=== PATIENT | male | born 1960 | race Caucasian/White ===

== ENCOUNTER 2019-01-06 08:49 | Emergency (ER) | payer BC, SELFPAY ==
[2019-01-06 08:52] VITALS: BP 121/81; PULSE 75; RESP 12; TEMP 36.9; O2SAT 98
--- NOTE | 2019-01-06 09:18 | ED.GENADUL_ITS ---
Discharge Plan Disposition Patient Disposition: HOME Condition: Stable Discharge Details Chief Complaint: Allergic Clinical Impression: Allergic reaction Primary Care Provider: Coco,Local ED Provider: Maryse Maynard Home Meds and New Rx's Prescriptions: New prednisone 20 mg tablet See Rx Instructions .ROUTE .COMPLEX Qty: 12 RF: 0 Continued lisinopril [Prinivil] 20 MG tablet 20 mg PO DAILY RF: 0 pravastatin 20 MG tablet 20 mg PO QPM RF: 0 Xarelto 20 mg Tablet 20 mg PO QPM RF: 0 diphenhydramine HCl 25 mg Tablet 25 mg PO Q4H PRNRF: 0 Discharge Instructions Instructions: General Allergic Reaction (ED) Additional Instructions: Stop using the new fabric softener that you have at home as this may be the cause of your rash. Take Benadryl as needed and directed for itching. Take the steroids until finished. Follow-up with your primary care doctor next week for reevaluation. Return immediately to the emergency department with any worsening or concerning symptoms. 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 Recently started a new fabric softener 2 days prior to onset of rash. Denies any other new exposures. Denies fever, throat or lip swelling, shortness of breath, vomiting or diarrhea. Vitals within normal limits. Patient appears nontoxic. Normal ENT exam. Lungs clear to auscultation. Abdomen soft nontender. He has erythematous papules and urticaria noted to bilateral axilla, groin, hands, lower legs and top of feet. This appears likely allergic. There are scattered papules that have central clearing which does not necessarily fit the urticarial picture, but the majority of rash appears urticarial. Discussed with patient that his symptoms could possibly be due to the new fabric softener. He is instructed to stop this. Patient is taking lisinopril, however this is not likely appear to be the cause as he has no tongue or lip swelling. Will give a dose of prednisone here and send home with a prednisone prescription. He is instructed to drink plenty of fluids, get plenty of rest, take Benadryl as needed and directed for itching, follow-up with his primary care doctor for reevaluation and return here if worse. HPI General Mode of arrival: ambulatory . Date/Time Provider Initiated Documentation: 01/06/19 08:58 . Limitations to Documentation: no limitations . Information obtained by: patient . HPI Narrative: Patient is a 58-year-old male who presents to the ED with complaint of pruritic diffuse body rash for the past 2 days. Patient states his rash woke him from sleep 2 nights ago and started in his groin and then progressed to his axilla, hands, legs and feet. He states it is extremely itchy. He states he started a new fabric softener 2 days prior to onset of rash. He denies any other new soap, lotion, detergent, meds, foods, pets, or recent travel. He denies any fever, throat, tongue or lip swelling or itching, shortness of breath, chest pain, vomiting or abdominal pain. He states he has been taking Benadryl at home with some relief of itch ing, last dose at 2 AM today. Related Data Home Medications Medication Instructions Recorded Confirmed lisinopril [Prinivil] 20 mg PO DAILY 07/11/16 01/06/19 pravastatin 20 mg PO QPM 07/11/16 01/06/19 Xarelto 20 mg PO QPM 01/06/19 01/06/19 diphenhydramine HCl 25 mg PO Q4H PRN 01/06/19 01/06/19 prednisone See Rx Instructions .ROUTE 01/06/19 .COMPLEX #12 tab Previous Rx's Medication Instructions Recorded prednisone See Rx Instructions .ROUTE 01/06/19 .COMPLEX #12 tab Allergies Allergy/AdvReac Type Severity Reaction Status Date / Time No Known Allergies Allergy Unverified 01/06/19 08:56 General Stated Complaint: Allergic JANESSA: 4 Review of Systems Review of Systems All systems reviewed & are unremarkable except as noted in HPI and below Constitutional Reports as per HPI, Denies chills and Denies fever(s) Eyes Denies blurry vision ENT Denies dizziness, Denies sore throat and Denies throat swelling Cardiovascular Denies chest pain and Denies dyspnea Respiratory Denies cough and Denies dyspnea Gastrointestinal Denies abdominal pain, Denies diarrhea and Denies vomiting Genitourinary Denies hematuria and Denies dysuria Musculoskeletal Denies back pain and Denies numbness Integumentary/Breasts Denies lesions and Reports rash Neurologic Denies dizziness, Denies focal weakness and Denies numbness Allergic/Immunologic Denies throat swelling FOR[facility] Medical History Hyperlipemia (Acute) HTN (hypertension) (Chronic) Peripheral vascular disease (Chronic) Surgical History Arterial stent thrombosis (Acute) Social History Smoking/Tobacco Use Status: Current every day Drug use: Never Do you feel safe at home: Yes Do you feel safe in your relationship?: Yes Exam Const General: cooperative, healthy appearing and no acute distress HENMT Head: normal to inspection Ears: hearing grossly normal bilaterally, external ears normal and TM's normal bilaterally General nose exam: external nose normal Face and sinus: normal facial exam Mouth: oral mucosae normal Teeth and gingiva: dentition normal Throat: posterior oropharynx normal Eyes General: appearance normal, both eyes and all related structures EOM: EOM intact bilaterally Neck Neck: normal visual inspection and No submandibular swelling Lymphatic: no lymphadenopathy noted Chest Chest: normal inspection of the chest and no tenderness Resp Effort & Inspection: normal respiratory effort and able to speak in complete sentences Auscultation: clear to auscultation bilaterally Cardio Rate: regular rate Rhythm: regular rhythm GI Inspection: normal to inspection Palpation: soft, not firm, not rigid and nontender Auscultation: normal bowel sounds Male General Exam: Yes normal external exam Skin Other: Raised erythematous papules and urticaria noted to neck, bilateral axilla, bilateral groin, wrists and top of feet. There are scattered papules that have central clearing but overall rash appears urticarial. Neuro General: alert, awake and oriented x3 Cognition: normal cognition Speech: speech normal Motor: muscle tone normal throughout Sensory Exam: no sensory deficits noted Extrem General: normal to inspection, full ROM and no edema Psych Appearance: grossly normal Mental Status: mental status grossly normal Speech and Movement: speech and movement normal Affect: normal affect Course Vital Signs Temperature 98.4 F 01/06/19 08:52 Pulse 75 01/06/19 08:52 Respiratory Rate 12 01/06/19 08:52 Blood Pressure 121/81 04/04/19 08:52 Pulse Oximetry 98 01/06/19 08:52 Temperature 98.4 F 01/06/19 08:52 Temperature Source Temporal Artery Scan 01/06/19 08:52 Pulse 75 01/06/19 08:52 Respiratory Rate 12 01/06/19 08:52 Respiratory Effort Non-Labored 01/06/19 08:58 Respiratory Pattern Normal 01/06/19 08:58 Blood Pressure 121/81 01/06/19 08:52 Blood Pressure Position Sitting 01/06/19 08:52 Pulse Oximetry 98 01/06/19 08:52 Oxygen Delivery Method Room Air 01/06/19 08:52 Oxygen Flow Rate 0 01/06/19 08:52 Pain Level 0 01/06/19 08:52
[2019-01-06] MEDS: predniSONE 20 MG TAB 60 MG PO (09:22)
== END 2019-01-06 09:28 | disposition home or self-care (01) ==
LOC: ER 09:21
PROVIDERS: Emergency Provider Physician Assistant
DX: L50.0 Allergic urticaria (principal); I10 Essential (primary) hypertension
CPT/HCPCS: 99283; J7512